=== PATIENT | male | born 1970 | race Caucasian/White ===

== ENCOUNTER 2017-03-01 19:30 | Outpatient (CLI) | payer OTHER | END 2017-03-01 19:31 | disposition home or self-care (01) | LOC: SLEEPLAB 19:30 | PROVIDERS: ATTEND Nurse Practitioner Family | DX: G47.33 Obstructive sleep apnea (adult) (pediatric) (principal); R53.83 Other fatigue; R06.83 Snoring; E66.9 Obesity, unspecified; K21.9 Gastro-esophageal reflux disease without esophagitis | CPT/HCPCS: 95811 ==

== ENCOUNTER 2017-03-06 07:27 | Outpatient (CLI) | payer OTHER ==
--- NOTE | 2017-03-06 09:25 | ULT ---
THYROID ULTRASOUND: Date: 03/06/17 HISTORY: Abnormal TSH levels. COMPARISON: None. TECHNIQUE: Utilizing a multihertz transducer, sonographic imaging of the thyroid gland is performed in the longi tudinal and transverse plane. FINDINGS: There is diffuse heterogeneity throughout the thyroid gland. Right thyroid lobe measures 4.3 x 1.6 x 1.9 cm. Left thyroid lobe measures 4.6 x 1.3 x 1.9 cm. Thyroi d isthmus is 0.4 cm. There is a solid echotexture nodule in the mid aspect of the right thyroid lobe measuring 1.0 cm in m aximum dimension. There are solid nodules in the left thyroid lobe which also measure approximately 1 .0 cm. IMPRESSION: Hyperechoic solid nodules throughout the thyroid gland. The thyroid gland has underlying heterogeneit y. Based upon TIRADS calculator, this is a TIRADS Level 3. Given the size of the lesions, follow-up i s not warranted as per the TIRADS calculator. Nevertheless, follow-up should be based upon clinical f inding and/or suspicion. If follow-up imaging is warranted, consider imaging in 1 year. POS: [facility]
--- NOTE | 2017-03-06 10:01 | ULT ---
EXAM: GALLBLADDER ULTRASOUND: HISTORY: Elevated AST. COMPARISON: 06/04/12. TECHNIQUE: Utilizing a multihertz transducer, sonographic imaging of the right upper quadrant was performed in t he longitudinal transverse plane. FINDINGS: Suboptimal evaluation of the inferior vena cava. Pancreas is obscured by bowel gas. The hepatic parenchyma has an overall normal echotexture, with the exception of the right hepatic lob e where there is an echogenic focus measuring 0.8 cm. A small hemangioma is favored. There is also a small echogenic focus with comet-tail artifact which may represent a small calcified granuloma. Th e liver measures 15.4 cm. The gallbladder is surgically absent. Common bile duct diameter is 0.2 cm. Main portal vein is patent. Appropriate directional flow. Right kidney: No hydronephrosis. Mild renal cortical thinning; 7.1 x 12.2 x 6.8 cm. IMPRESSION: 1. Echogenic focus in the right hepatic lobe which may represent a small subcentimeter hemangioma. C onfirmation with CT is recommended, utilize hemangioma protocol. 2. Surgically absent gallbladder. POS: [facility]
== END 2017-03-06 07:28 | disposition home or self-care (01) ==
LOC: ULT 07:27
PROVIDERS: ATTEND Nurse Practitioner Family
DX: R94.6 Abnormal results of thyroid function studies (principal); R74.0 Nonspecific elevation of levels of transaminase and lactic acid dehydrogenase [LDH]; E04.1 Nontoxic single thyroid nodule; Z90.49 Acquired absence of other specified parts of digestive tract
CPT/HCPCS: 76536; 76705

== ENCOUNTER 2017-03-17 08:12 | Outpatient (CLI) | payer OTHER ==
--- NOTE | 2017-03-17 11:53 | CT ---
CT ABDOMEN WITH AND WITHOUT IV CONTRAST: CT PELVIS WITH AND WITHOUT IV CONTRAST: 03/17/2017 HISTORY: Abnormal ultrasound examination with an echogenic subcentimeter mass within the liver. CT scan was r ecommended. FINDINGS: There is a small to moderate sized pericardial effusion noted. The lung bases are clear. Post cholecystectomy changes are present. A 3 cm hypodense mass is seen in the lateral segment of the left hepatic lobe. There is suggestion o f peripheral discontiguous nodular enhancement present, although faint, with slow fill-in on further delayed imaging, and this likely represents a hemangioma. This was not seen on the ultrasound examin [facility]. There is a smaller hypodense lesion, measuring 11 mm, within the right hepatic lobe, which is adjacen t to the region of the gallbladder fossa. This is too small to further characterize on this examinat ion. This may potentially correspond to the sonographic abnormality. No additional hepatic lesion i s seen. A 2.1 cm fluid density cystic lesion is seen in the superior pole, left kidney, most compatible with a cyst. The spleen, pancreas, bilateral adrenal glands, and kidneys demonstrate a normal CT appearance. No free fluid or fluid collection is seen in the abdomen. IMPRESSION: 1. Small to moderate sized pericardial effusion. 2. Findings likely attributable to a hemangioma within the left hepatic lobe. This was not seen on sonographic evaluation. 3. Subcentimeter, [id number]-loont-bn-characterize hypodense lesion, right hepatic lobe, adjacent to the ga llbladder fossa. This may potentially correspond to the sonographic abnormality. 4. Left renal cyst. CODE T POS: [facility]
[2017-03-17] MEDS ORDERED: ISOVUE-370 76%-LOCM 1 ML ONE (17:17)
== END 2017-03-17 08:13 | disposition home or self-care (01) ==
LOC: CT 08:12
PROVIDERS: ATTEND Internal Medicine
DX: R93.2 Abnormal findings on diagnostic imaging of liver and biliary tract (principal); R74.8 Abnormal levels of other serum enzymes; N28.1 Cyst of kidney, acquired; K76.9 Liver disease, unspecified; I31.3 Pericardial effusion (noninflammatory)
CPT/HCPCS: 74170

== ENCOUNTER 2017-09-30 10:20 | Outpatient (CLI) | payer OTHER | END 2017-09-30 10:21 | disposition home or self-care (01) | LOC: BICULT 10:20 | PROVIDERS: ATTEND Internal Medicine | DX: E04.1 Nontoxic single thyroid nodule (principal); E07.9 Disorder of thyroid, unspecified | CPT/HCPCS: 76536 ==

== ENCOUNTER 2017-12-10 10:04 | Day surgery (SDC) | payer OTHER ==
[2017-12-10 11:41] VITALS: BP 154/92; TEMP 98.8
--- NOTE | 2017-12-10 12:12 | ULT ---
THYROID ULTRASOUND: Comparison: Thyroid ultrasound from [facility], 09-30-17 and thyroid ultrasound 03-06-17. Technique: Multiplanar grayscale and color doppler images were obtained in a thyroid ultrasound. The patient came in for a biopsy of a right thyroid nodule and ultrasound was performed prior to deciding which nodule to biopsy. FINDINGS: The thyroid is very heterogeneous in appearance. There are hyperechoic regions within the thyroid. Th christiano most likely represent heterogeneous thyroid tissues rather than discrete nodules. These have dwain ined stable dating back to 2017. The area [facility] was likely over measured, and this region does contain a small hyperechoic lesion measuring less t keane 1 cm in size. All of these hyperechoic regions show no suspicious calcifications and are wider th an tall. Along the posterior aspect of the left lobe of the thyroid there is a well circumscribed les ion which may represent a parathyroid gland measuring 1.1 cm in greatest dimension. IMPRESSION: The thyroid is heterogeneous without obvious discrete suspicious nodule. If one of these hyperechoic lesions was a nodule, these are all small in size and would only be a TIRADS category 3 lesion. Per r ecthi TIRADS recommendations, a TIRADS category 3 lesion needs follow up if greater than or equal 1.5 cm. FNA is only recommended at greater than 2.5 cm. At this time, a biopsy was not performed as none of the hypoechoic lesions meet the criteria for biopsy or for follow up. POS: [facility]
== END 2017-12-10 11:15 | disposition home or self-care (01) ==
LOC: ULT 10:04
PROVIDERS: ATTEND Internal Medicine
DX: E04.1 Nontoxic single thyroid nodule (principal)
CPT/HCPCS: 76536

== ENCOUNTER 2018-05-11 07:37 | Outpatient (CLI) | payer OTHER ==
--- NOTE | 2018-05-11 10:13 | CT ---
ABDOMEN CT WITH AND WITHOUT CONTRAST: History: Follow up left hepatic lobe lesion. 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 Comparison: 03-17-17 Technique: An abdomen and pelvis CT are performed with and without IV contrast. Coronal reformatted i mages are submitted for interpretation. FINDINGS: There is a hypodense lesion in the left hepatic lobe with an attenuation coefficient of 42 Hounsfield units on the noncontrast sequence, 41-47 Hounsfield units on the arterial phase images. On the expir atory phase, on the delayed images, attenuation coefficient it is 57 Hounsfield units. This lesion me asures 2.2 x 2.3 cm. The borders are best defined on the arterial phase images. On the delayed images the lesion is much harder to appreciate and is almost isodense with the adjacent hepatic parenchyma. Peripheral nodule enhancement, typical of hemangioma, is difficult to appreciate. When compared to t he previous examination, this lesion has not increased in size. Previously, the lesion measured 2.6 x 2.2 cm. Hypodensity in the right hepatic lobe, adjacent to the gallbladder fossa is unchanged and me asures 11 mm. No new masses in the liver. Spleen, pancres, adrenal glands and kidneys are stable in enhancement. Re-demonstration of a hypodens ity emanating from the upper pole of the left kidney with an attenuation coefficient of 3 Hounsfield units on the arterial phase images. Simple cyst measuring 1.9 x 2.0 cm is favored. No evidence of obs tructed uropathy. Visualized mesentery, alimentary canal and psoas muscles are unremarkable. IMPRESSION: 1. Hypodense lesion in the right hepatic lobe which has not significantly changed in size. Findings m ay represent a hemangioma. Evaluation is somewhat limited by technique. Definite peripheral nodule en hancement is not appreciated on the current study but was more evident on the previous study. If ther e is concern, continued surveillance and definite characterization, consider MRI. 2. Stable hypodensity in the right hepatic lobe. 3. Stable cyst emanating from the upper pole of the left kidney. POS: [facility]
[2018-05-11] MEDS ORDERED: ISOVUE-370 76%-LOCM 1 ML ONE (16:58)
== END 2018-05-11 07:38 | disposition home or self-care (01) ==
LOC: BICCT 07:37
PROVIDERS: ATTEND Internal Medicine
DX: K76.0 Fatty (change of) liver, not elsewhere classified (principal); R93.5 Abnormal findings on diagnostic imaging of other abdominal regions, including retroperitoneum; K76.9 Liver disease, unspecified; N28.1 Cyst of kidney, acquired
CPT/HCPCS: 74170; Q9966

== ENCOUNTER 2018-12-03 15:24 | Outpatient (CLI) | payer OTHER ==
--- NOTE | 2018-12-03 16:12 | ULT ---
Thyroid ultrasound: 12/03/2018 COMPARISON: 12/10/2017 HISTORY: Reevaluate thyroid nodules TECHNIQUE: Multiplanar grayscale sonographic imaging of the thyroid gland obtained. FINDINGS: Overall, the thyroid gland is markedly heterogeneous. The right lobe measures 4.8 x 1.9 x 1.5 cm and the left lobe measures 5.1 x 1.5 x 1.8 cm. There are a few scattered hyperechoic nodules within both the right and the left lobe of the thyroid gland. This includes a hyperechoic nodule within the right lobe measuring up to 1 cm. There are also hyperec hoic nodules measuring up to 1 cm on the left. These nodules appear stable when compared to the prior examination. IMPRESSION: TI-RADS Category 3-mildly suspicious. No further follow-up required as nodules are less t ekane 1.5 cm. Transcribed Date/Time: 12/03/2018 4:38 PM
== END 2018-12-03 15:25 | disposition home or self-care (01) ==
LOC: BICULT 15:24
PROVIDERS: ATTEND Physician Assistant
DX: E04.2 Nontoxic multinodular goiter (principal)
CPT/HCPCS: 76536

== ENCOUNTER 2020-01-06 13:14 | Outpatient (CLI) | payer OTHER ==
--- NOTE | 2020-01-06 15:56 | ULT ---
Exam: Thyroid ultrasound COMPARISON: 12/03/2018 FINDINGS: Thyroid isthmus measures 0.4 cm Right thyroid lobe measures 5.5 x 1.9 x 1.9 cm Left thyroid lobe measures 5.3 x 1.7 x 1.5 cm left thyroid Nodules: Right thyroid lobe: 2 separate solid echotexture nodules, hyperechoic measuring 0.8 x 0.6 x 0.8 cm th e midpole and 0.5 x 0.4 x 0.5 cm near the junction of the mid pole and the thyroid isthmus Left thyroid lobe: 2 separate solid echotexture hyperechoic nodules in the left upper lobe. There is a 1.0 x 0.6 x 0.6 cm solid nodule in the midpole and a second 0.4 x 0.3 x 0.5 cm solid nodule in the midpole. When compared to the previous examination, the solid echotexture nodules in the left and right thyroi d lobe not appreciably changed. IMPRESSION: 1. Solid hyperechoic nodules left and right thyroid lobe. BI-RADS category TR 3, mildly suspicious. N o further follow-up required as nodule less than 1.5 cm.
== END 2020-01-06 13:15 | disposition home or self-care (01) ==
LOC: BICULT 13:14
PROVIDERS: ATTEND Physician Assistant
DX: E04.2 Nontoxic multinodular goiter (principal)
CPT/HCPCS: 76536

== ENCOUNTER 2021-01-31 08:25 | Outpatient (CLI) | payer OTHER | END 2021-01-31 08:26 | disposition home or self-care (01) | LOC: TBSIIMAG 08:25 | PROVIDERS: ATTEND Urology | DX: R97.20 Elevated prostate specific antigen [PSA] (principal) | CPT/HCPCS: 72197 ==

== ENCOUNTER 2021-04-09 07:45 | Outpatient (CLI) | payer BC, OTHER | END 2021-04-09 07:46 | disposition home or self-care (01) | LOC: SCSMRI 07:45 | PROVIDERS: ATTEND Specialist | DX: M51.17 Intervertebral disc disorders with radiculopathy, lumbosacral region (principal); M51.16 Intervertebral disc disorders with radiculopathy, lumbar region; M47.26 Other spondylosis with radiculopathy, lumbar region; M48.061 Spinal stenosis, lumbar region without neurogenic claudication | CPT/HCPCS: 72148 ==

== ENCOUNTER 2023-01-13 08:06 | Outpatient (CLI) | payer BC | END 2023-01-13 08:07 | disposition home or self-care (01) | LOC: SCSMRI 08:06 | PROVIDERS: ATTEND Specialist | DX: M51.17 Intervertebral disc disorders with radiculopathy, lumbosacral region (principal); M47.816 Spondylosis without myelopathy or radiculopathy, lumbar region | CPT/HCPCS: 72148 ==

== ENCOUNTER 2024-12-14 14:34 | Outpatient (CLI) | payer BC | END 2024-12-14 14:35 | disposition home or self-care (01) | LOC: SCSMRI 14:34 | PROVIDERS: ATTEND Internal Medicine Endocrinology, Diabetes & Metabolism | DX: E23.7 Disorder of pituitary gland, unspecified (principal); E22.1 Hyperprolactinemia; R79.89 Other specified abnormal findings of blood chemistry; R68.89 Other general symptoms and signs | CPT/HCPCS: 70553; 76376 ==